=== PATIENT | male | born 1975 | race Caucasian/White ===

== ENCOUNTER 2016-10-28 13:06 | Emergency (ER) | payer OTHER ==
--- NOTE | 2016-10-28 17:51 | Emergency Department Report ---
ED General Adult HPI - General Chief complaint: Upper Respiratory Infection Stated complaint: FACIAL PAIN Time Seen by Provider: 10/28/16 17:28 Source: patient Mode of arrival: Ambulatory Limitations: No Limitations - History of Present Illness Initial comments: This is a 40-year-old male presents with left-sided facial numbness/tingling. Patient stated that and diagnosed with sinus infection couple months ago but denies taking antibiotics. Patient complaining of sinus pressure and numbness in the left cheek/first and second molars. Patient denies headache, CP, SOB, numbness or tingling sensation in lower and upper extremities, n/v. 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 Last dose of blood pressure medications this morning. Patient is on currently taking prednisone that was prescribed to him. Patient does not seem toxic or ill appearance. No signs of distress. Denies any drug allergies. MD Complaint: sinus pressure/numbness/tingling of left cheek -: Gradual, week(s) (2) Location: face (left cheek) Radiation: non-radiation Severity scale (0 -10): 8 Quality: other (tingling/numbness) Consistency: constant Improves with: rest Worsens with: cold therapy, eating, movement Associated Symptoms: denies other symptoms. denies: confusion, chest pain, cough, diaphoresis, fever/chills, headaches, loss of appetite, malaise, nausea/ vomiting, rash, seizure, shortness of breath, syncope, weakness Treatments Prior to Arrival: other (prednisone) - Related Data Home Medications Medication Instructions Recorded Confirmed Last Taken Lisinopril [Zestril TAB] 10 mg PO BID 10/28/16 10/28/16 10/28/16 Previous Rx's Medication Instructions Recorded Last Taken Type Amoxicillin/K Clav Tab [Augmentin 1 tab PO Q12HR 7 Days 10/28/16 Unknown Rx 875 mg] predniSONE [Deltasone] 50 mg PO QDAY 5 Days 10/28/16 Unknown Rx Allergies Allergy/AdvReac Type Severity Reaction Status Date / Time No Known Allergies Allergy Unverified 10/28/16 15:08 ED Review of Systems ROS: Stated complaint: FACIAL PAIN Other details as noted in HPI Constitutional: denies: chills, fever Eyes: denies: eye pain, eye discharge, vision change ENT: denies: ear pain, throat pain Respiratory: denies: cough, shortness of breath, wheezing Cardiovascular: denies: chest pain, palpitations Endocrine: no symptoms reported Gastrointestinal: denies: abdominal pain, nausea, diarrhea Genitourinary: denies: urgency, dysuria Musculoskeletal: denies: back pain, joint swelling, arthralgia Skin: as per HPI Neurological: denies: headache, weakness, paresthesias Psychiatric: denies: anxiety, depression Hematological/Lymphatic: denies: easy bleeding, easy bruising ED Past Medical Hx - Past Medical History Previous Medical History?: Yes Hx Hypertension: Yes - Surgical History Past Surgical History?: No - Social History Smoking Status: Never Smoker Substance Use Type: None - Medications Home Medications: Home Medications Medication Instructions Recorded Confirmed Last Taken Type Amoxicillin/K Clav Tab [Augmentin 1 tab PO Q12HR 7 Days 10/28/16 Unknown Rx 875 mg] Lisinopril [Zestril TAB] 10 mg PO BID 10/28/16 10/28/16 10/28/16 History predniSONE [Deltasone] 50 mg PO QDAY 5 Days 10/28/16 Unknown Rx ED Physical Exam - General Limitations: No Limitations General appearance: alert, in no apparent distress - Head Head exam: Present: atraumatic, normocephalic - Eye Eye exam: Present: normal appearance, PERRL, EOMI Pupils: Present: normal accommodation - ENT ENT exam: Present: normal orophraynx, mucous membranes moist, TM's normal bilaterally, normal external ear exam - Expanded ENT Exam Expanded Ear exam: Present: normal external inspection Mouth exam: Present: normal external inspection, tongue normal. Absent: drooling, trismus, muffled voice Teeth exam: Present: dental caries (first and second molars) Throat exam: Positive: tonsillar erythema. Negative: tonsillomegaly, tonsillar exudate, R peritonsillar mass, L peritonsillar mass - Neck Neck exam: Present: normal inspection, full ROM. Absent: tenderness, meningismus, lymphadenopathy - Respiratory Respiratory exam: Present: normal lung sounds bilaterally. Absent: respiratory distress, wheezes, rhonchi - Cardiovascular Cardiovascular Exam: Present: regular rate, normal rhythm. Absent: systolic murmur, diastolic murmur, rubs, gallop - GI/Abdominal GI/Abdominal exam: Present: soft, normal bowel sounds - Rectal Rectal exam: Present: deferred - Extremities Exam Extremities exam: Present: normal inspection, full ROM, normal capillary refill. Absent: tenderness, pedal edema, calf tenderness - Back Exam Back exam: Present: normal inspection, full ROM. Absent: tenderness, CVA tenderness (R), CVA tenderness (L), muscle spasm - Neurological Exam Neurological exam: Present: alert, oriented X3, CN II-XII intact - Expanded Neurological Exam Expanded Neurological exam: Absent: ataxia, expressive aphasia, tremor Patient oriented to: Present: person, place, time Cranial nerves: EOM's Intact: Normal, Gag Reflex: Normal, Tongue Deviation: Normal, Nystagmus: Normal, Facial Sensation: Normal, Facial Palsy with Forehead Movement: Normal, Facial Palsy without Forehead Movement: Normal Cerebellar function: Finger to Nose: Normal, Heel to Kan: Normal, Romberg: Normal Sensory exam: Upper Extremity Light Touch: Normal, Upper Extremity Pin Prick: Normal, Upper Extremity Temperature: Normal, UE 2 Point Discrimination: Normal, Lower Extremity Light Touch: Normal, Lower Extremity Pin Prick: Normal, Lower Extremity Temperature: Normal, LE 2 Point Discrimination: Normal Motor strength exam: RUE: 5, LUE: 5, RLE: 5, LLE: 5 Best Eye Response (Yuil): (4) open spontaneously Best Motor Response (Appling): (6) obeys commands Best Verbal Response (Yuli): (5) oriented Appling Total: 15 - Psychiatric Psychiatric exam: Present: normal affect, normal mood - Skin Skin exam: Present: warm, dry, intact, normal color. Absent: rash ED Course Vital Signs 10/28/16 10/28/16 15:01 18:40 Temperature 98.3 F 98 F Pulse Rate 88 97 H Respiratory 20 16 Rate Blood Pressure 156/101 Blood Pressure 143/99 [Right] O2 Sat by Pulse 99 98 Oximetry - Reevaluation(s) Reevaluation #1: 10/28/16 17:57 Dr Iwona Kang aware of patient and treatment plan. Patient does not seem toxic or ill appearance ED Medical Decision Making - Medical Decision Making ED course: 40-year-old male that presents with sinusitis/numbness tingling of the left cheek. 1- CT scan of head/sinuses: Large mass centered at the sphenoid sinus with destructive bony changes, extension into the left maxillary and posterior ethomid air cells and narrowing of the nasopharynx. differential consideration includes inflammatory lesion such as mucocele or fungal infection verus neoplasm. 2- Dr. Kang aware of patient and treatment plan. Patient aware of the CT findings. Patient referred to ENT and/or [facility]. 3- Patient does not seem toxic or ill in appearance 4- Instructed patient to finish the course of antibiotics and 50 mg of prednisone for 5 days. 5- time of this presentation does not seem any sign of distress. Patient understands discharge plan. No further rashes noted. 6- Cd of Ct scan results was given to patient at d/c. Critical care attestation.: If time is entered above; I have spent that time in minutes in the direct care of this critically ill patient, excluding procedure time. ED Disposition Clinical Impression: Sphenoid mass Sinusitis Qualifiers: Sinusitis location: unspecified location Chronicity: chronic Qualified Code(s) : J32.9 - Chronic sinusitis, unspecified Disposition: DISCHARGED TO HOME OR SELFCARE Is pt being admited?: No Does the pt Need Aspirin: No Condition: Stable Instructions: Sinusitis (ED) Additional Instructions: Please follow up with her primary care doctor in 3-5 days. Please follow up with neurologist if symptoms continue of numbness and tingling of the face. Please finish course of antibiotics as prescribed. Prescriptions: Amoxicillin/K Clav Tab [Augmentin 875 mg] 1 tab PO Q12HR 7 Days predniSONE [Deltasone] 50 mg PO QDAY 5 Days Referrals: [facility] [place] [Outside] - 3-5 Days [facility] [Outside] - 3-[address] [facility] [Outside] - [place] RUPINDER CEE MD [Primary Care Provider] - [place] YENY MONTALVO MD [Staff Physician] - [place] Forms: Work/School Release Form(ED)
[2016-10-28] MEDS ORDERED: ROCEPHIN IM ONE (18:30)
[2016-10-28] MEDS ORDERED: XYLOCAINE 1% MPF 5 mL INFILTRATI ONE (18:30)
[2016-10-28 18:41] VITALS: BP 143/99
--- NOTE | 2016-10-28 18:43 | Cat Scan Report ---
FINAL REPORT EXAM: CT SINUSES WO CON HISTORY: left facial numbness/tingling TECHNIQUE: CT of the paranasal sinuses without contrast PRIORS: None. FINDINGS: There is a large mass occupying the sphenoid sinus with destructive bony changes extending to the lateral vernon of the sphenoid in the clivus. Mass extends into the left maxillary sinus and has a somewhat rounded appearance within the maxillary sinus. There is some mucosal thickening noted. Mass extends into the posterior ethmoid cells and there is narrowing of the nasopharynx. Frontal sinuses are unremarkable. 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 Differential consideration includes inflammatory lesion such as mucocele or fungal infection versus neoplasm. CTR protocol 2 initiated at the time of this dictation
--- NOTE | 2016-10-28 18:48 | Cat Scan Report ---
FINAL REPORT EXAM: CT HEAD/BRAIN WO CON HISTORY: left facial numbness/tingling TECHNIQUE: CT of the head without contrast PRIORS: None. FINDINGS: Large mass centered at the sphenoid sinus with destructive bony changes further described on today's CT of the sinuses again noted. Otherwise there are no acute intracranial findings. The ventricles and sulci are within normal limits. Samson-white matter differentiation is intact. No acute intra or extra-axial hemorrhage identified. IMPRESSION: Skullbase mass further described on today's CT of the sinuses No additional acute findings
== END 2016-10-28 20:03 | disposition home or self-care (01) ==
LOC: ED 13:06
DX: J32.9 Chronic sinusitis, unspecified (principal); R22.1 Localized swelling, mass and lump, neck; I10 Essential (primary) hypertension
CPT/HCPCS: 70450; 70486; 96372; 99283; J0696